=== PATIENT | male | born 1950 | race Caucasian/White ===

== ENCOUNTER → 2018-05-11 | Outpatient (CLI) | payer BC ==
[~2018-05-11] MED LIST: REGADENOSON 0.4 MG/5 ML DISP.SYRIN. IV ONE
--- NOTE | 2018-05-11 09:16 | PCVCIMAG ---
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 Time: 221.98 ms MV E Max Beka.: 0.81 m/s MV A Beka.: 0.73 m/s TDI E/Lateral E': 11.57E/Medial E': 11.57 Medial E' Beka.: 0.07 m/s Lateral E' Beka.: 0.07 m/s Pulmonary Valve PV Peak Beka.: 1.09 m/sPV Peak Gr.: 4.79 mmHg Pulmonary Vein P Vein S: 0.52 m/sP Vein A: 0.38 m/s P Vein D: 0.51 m/sP Vein A Dur.: 114.2 msec P Vein S/D Ratio: 1.02 Tricuspid Valve TR Peak Beka.: 2.47 m/s TR Peak Gr.: 24.32 mmHg TV Vmax: 0.70 m/sPA Pressure: 31.00 mmHg Left Ventricle The left ventricle is normal size. Old ID is seen with mid-distal anteroseptal hypokinesis and apex. There is normal left ventricular wall thickness. Left ventricular systolic function is moderately decreased. LVEF is 40%. Right Ventricle The right ventricle is normal size. The right ventricular systolic function is normal. Atria The left atrium size is normal. The right atrium size is normal. Aortic Valve Aortic valve is trileaflet. The aortic valve is normal in structure. No aortic regurgitation is present. There is no aortic valvular stenosis. Mitral Valve The mitral valve is normal in structure. There is no mitral valve regurgitation noted. No evidence of mitral valve stenosis. Tricuspid Valve The tricuspid valve is normal in structure. Mild tricuspid regurgitation. Pulmonic Valve The pulmonary valve is normal in structure. There is no pulmonic valvular regurgitation. Great Vessels The aortic root is normal in size. The ascending aorta is normal in size. Aortic arch is normal in caliber. IVC is normal in size and collapses >50% with inspiration. Pericardium There is no pericardial effusion. There is no pleural effusion. <Conclusion> The left ventricle is normal size. There is normal left ventricular wall thickness. Left ventricular systolic function is moderately decreased. LVEF is 40%. The right ventricle is normal size. The left atrium size is normal. The aortic valve is normal in structure. The mitral valve is normal in structure. Mild tricuspid regurgitation.
--- NOTE | 2018-05-11 11:37 | PCVCIMAG ---
APPROVED REPORT Imaging Protocol: Rest Tc-99m/Stress Tc-99m 1 day Study performed: 05/11/2018 08:58:53 Indication: CAD , Dyspnea, Pre-Operative CV evaluation Patient Location: Out-Patient Stress Nurse: Jennifer Newton RN AL Tech:Ruthy Ruffnida [facility] Ht: 5 ft 9 in Wt: 220 lbs BSA: 2.15 m2 HR: 67 bpm BP: 132/80 mmHg BMI: 32.48 Rhythm: Normal Sinus Rhythm Medical History Medical History: HTN, Hyperlipidemia, CAD Medications: Aspirin, Metoprolol, ASA, Lipitor, Amaryl Allergies: No known drug allergies Cardiac Risk Factors: Age Previous Cardiac Procedures: 2011 CABG, 2011 PCI to LAD Pretest Chest Pain Characteristics: No chest pain Exercise History: Sedentary Meds Held (24 hrs): Aspirin, Metoprolol Resting Data Rest SPECT myocardial perfusion imaging was performed in supine position 45 minutes following the intravenous injection of 10.1 mCi of Tc-99m Sestamibi. Time of rest injection: 0900 Date: 05/11/2018 Administration Route: IV Pharmacologic Stress Pharmacologic stress test was performed by injecting Regadenoson 0.4 mg IV push over 10-15 seconds immediately followed by the intravenous injection of 32.5 mCi of Tc-99m Sestamibi. Time of stress injection: 1000 Date: 05/11/2018 Administration Route: IV Gated Stress SPECT was performed 45 minutes after stress injection. The images were gated to evaluate regional wall motion and calculate left ventricular ejection fraction. Stress Test Details Stress Test: Pharmacologic stress testing performed using 0.4 mg of regadenoson per 5 mL given IV over 10 seconds. Reason for pharmacologic stress test: physical limitation. HRMax Heart Rate (APMHR): 155 bpm Resting HR: 67 bpmTarget HR (85% APMHR): 131 bpm Max HR Achieved: 100 bpm % of APMHR: 64 Recovery HR: 82 bpm BP Resting BP: 132/80 mmHg Max BP: 159/74 mmHg Recovery BP: 134/66 mmHg ECG Resting ECG: Sinus Rhythm, Stress ECG: Sinus Tachycardia ST Change: Non-ischemic Recovery ECG: Sinus Rhythm Clinical Reason for Termination: Completed protocol Stress Symptoms: Dyspnea Exercise duration: 0 min 55 sec Symptoms resolved with caffeine. Study Quality Study: Good Study Data Post stress, the left ventricular ejection was 49%.. SSS: 29 SRS: 30 SDS: 2 TID = 1.06. Perfusion There is a medium area of moderately reduced uptake in the mid and apical segment of the anteroseptal wall which is seen on the stress images as well as the resting images. This area is hypokinetic and is most consistent with myocardial scar. Wall Motion Mildly decreased left ventricular systolic function. Nuclear Conclusion ECG Findings: negative for ischemia Clinical Findings: non-diagnostic Nuclear Findings: positive for infarct Exercise Capacity: not assessed Left Ventricular Function: abnormal Risk Study: this study reveals an incomplete infarct in the mid This study reveals an incomplete infarct in the mid to apical anteroseptal. This study is of low probability for inducible ischemia. There is mild segmental LV dysfunction, EF 49%.
== END | disposition home or self-care (01) ==
LOC: PCVCIMAG 08:10
PROVIDERS: ATTEND Internal Medicine Cardiovascular Disease
DX: Z01.818 Encounter for other preprocedural examination (principal); I25.10 Atherosclerotic heart disease of native coronary artery without angina pectoris; I10 Essential (primary) hypertension; R06.09 Other forms of dyspnea; E78.5 Hyperlipidemia, unspecified; I07.1 Rheumatic tricuspid insufficiency
CPT/HCPCS: 78452; 93017; 93306; A9500; J2785